=== PATIENT | male | born 1955 | race Caucasian/White ===

== ENCOUNTER → 2019-11-15 | Outpatient (CLI) | payer OTHER, BC ==
[~2019-11-15] MED LIST: ABILIFY 5 MG TAB5 MG PO; ASPIRIN EC81 M1 PO; ATIVAN1 M1 PO; BASAGLAR K100 UNIT/1 SUBQ; BRILINTA90 MG PO; CIPROHEPTADINE PO; GLUCOPHAGE1000 MG PO; IMDUR 30 MG TAB30 M1 PO; KEPPRA XR500 MG PO; LIPITOR80 MG PO; LOPRESSOR50 PO; MINIPRESS5 MG PO; NEURONTIN100 MG PO; NEXIUM 40 MG CA40 M1 PO; THEO-24300 MG PO; VENLAFAXINE HC150 M1 PO; ZESTRIL10 MG PO
== END ==
LOC: LAB 11:30
DX: Z01.812 Encounter for preprocedural laboratory examination (principal); Z20.828 Contact with and (suspected) exposure to other viral communicable diseases

== ENCOUNTER 2019-11-19 06:03 | Inpatient (IN) | payer OTHER, BC ==
[2019-11-15 10:58] LABS: ABSOLUTE NEUTROPHILS 6.3 thou/uL (1.4-8.2); BASOPHILS 0.6 % (0.0-2.0); EOSINOPHILS 3.4 % (0.0-3.0); HEMATOCRIT 43.7 % (42.0-52.0); LYMPHOCYTES 18.5 % (24.0-44.0); MCH 31.1 pg (26.0-34.0); MCHC 34.3 g/dL (28.0-37.0); MCV 90.8 fL (80.0-100.0); MONOCYTES 6.2 % (1.0-8.0); PLATELET COUNT 194 thou/uL (150-400); POLYS 71.3 % (36.0-66.0); RBC 4.81 mil/uL (4.50-6.00); RDW 12.9 % (10.5-14.5); URINE BILIRUBIN NEGATIVE (Negative); URINE BLOOD NEGATIVE (Negative); URINE CLARITY CLEAR; URINE COLOR YELLOW; URINE GLUCOSE-RANDOM* NEGATIVE (Negative); URINE KETONES NEGATIVE (Negative); URINE LEUKOCYTES-REFLEX NEGATIVE (Negative); URINE NITRITE-REFLEX NEGATIVE (Negative); URINE PROTEIN (DIPSTICK) NEGATIVE (Negative); URINE SPECIFIC GRAVITY >= 1.030 (1.005-1.035); URINE UROBILINOGEN 0.2 E.U./dl (0.2-1.0); WBC 8.8 thou/uL (4.0-11.0)
[2019-11-15 11:20] LABS: ALBUMIN 3.9 g/dL (3.4-5.0); CALCIUM 9.1 mg/dL (8.5-10.1); MAGNESIUM 1.8 mg/dL (1.8-2.4); POTASSIUM 3.9 mmol/L (3.5-5.1); TOTAL BILIRUBIN 0.5 mg/dL (0.2-1.0); TOTAL PROTEIN 7.2 g/dL (6.4-8.2)
[2019-11-15 11:21] LABS: APTT 29.5 Seconds (24.5-32.8); PROTIME 10.4 Seconds (9.3-11.4)
--- NOTE | 2019-11-15 16:45 | EKG ---
[facility] [place] [address] ELECTROCARDIOGRAM REPORT Name: NYDIA CALLAHAN Room #: PRE IN M.R.#: [id number] Admission: Attend Phys: Fuad Rome MD Discharge: Date of : 55 Report #: [id number] THIS REPORT FOR: cc: FAM - Family physician unknown FAM - Family physician unknown Soto Pacheco MD [facility] ~ THIS REPORT FOR: //name// [facility] Test Date: 2019-11-15 Test Time: 10:56:41 Pat Name: NYDIA CALLAHAN Department: Room: Gender: M Alarm Signaler: MEI : 1955 Requested By: Fuad Rome Order Number: [id number] MD: Soto Pacheco Measurements Intervals [place] Rate: 69 P: 54 LA: 161 QRS: 46 QRSD: 94 T: 63 QT: 396 QTc: 425 Interpretive Statements Sinus rhythm Abnormal R-wave progression, early transition No previous ECG available for comparison Electronically Signed On 11-15-2019 16:45:40 CDT by Soto Pacheco [email or web address] <ELECTRONICALLY SIGNED> By: Soto Pacheco MD, [facility] 11/15/19 1645 D: 08/1055 105 Soto Pacheco MD, FACC /EPI
[~2019-11-19] VITALS: Ht 175.3 cm; Wt 120.2 kg
[~2019-11-19 06:03] MED LIST changes: -CIPROHEPTADINE PO; +CYPROHEPTADINE 44 MG PO; -KEPPRA XR500 MG PO; +LEVETIRACETAM500 M1 PO
[2019-11-19 07:27] VITALS: BP 111/60
[2019-11-19 12:40] VITALS: BP 103/62
--- NOTE | 2019-11-19 13:08 | NUR ---
PATIENT ARRIVED ON UNIT WITH AT BEDSIDE. ALERT XS 4 PLEASANT AND COOPERATIVE WITH CARE. V.S. 97.6 18 68 103/62 O2 SAT = 95% 2L/ NC, WEIGHT = 266.4 5'7". DIET ADVANCED TO CARB DM DIET. ARRIVED AT 1240
[2019-11-19 19:45] VITALS: BP 125/72
--- NOTE | 2019-11-20 03:07 | NUR ---
PT IS ALERT AND ORIENTED. VERY COOPERATIVE. HE HAS BEEN SATNDING BY THE BEDSIDE TO USE URINAL. HE HAS NOT REQUIRED ANY PAIN MEDS. DENIES ANY DIZZINESS OR SOA. THE INCISION TO HIS LOWER BACK HAS SOME BLOODY DRAINAGE-WILL CONTINUE TO MONITOR FOR NEED TO CHANGE IT.PT IS VOIDING OKAY. DRINKING ADEQUATELY. C/O SOME MILD/PARTIAL NUMBNESS TO R HAND POST OP.PT APPEARS TO BE IN NO DISTRESS. PROGRESSING TOWARDS CARE GOALS.
[2019-11-20 04:00] VITALS: BP 135/78
[2019-11-20 05:37] LABS: BASOPHILS 0.1 % (0.0-2.0); HEMATOCRIT 39.6 % (42.0-52.0); HEMOGLOBIN 13.4 gm/dL (14.0-18.0); LYMPHOCYTES 7.2 % (24.0-44.0); MCH 30.6 pg (26.0-34.0); MCHC 33.8 g/dL (28.0-37.0); MCV 90.6 fL (80.0-100.0); MONOCYTES 8.5 % (1.0-8.0); PLATELET COUNT 188 thou/uL (150-400); POLYS 84.2 % (36.0-66.0); RBC 4.37 mil/uL (4.50-6.00); RDW 13.2 % (10.5-14.5); WBC 14.3 thou/uL (4.0-11.0)
[2019-11-20 05:42] LABS: CALCIUM 8.2 mg/dL (8.5-10.1); CREATININE 0.9 mg/dL (0.7-1.3); MAGNESIUM 1.8 mg/dL (1.8-2.4)
--- NOTE | 2019-11-20 07:49 | O ---
[facility] [place] [address] OPERATIVE REPORT Name: NYDIA CALLAHAN Room #: 441-P ADM IN M.R.#: [id number] Admission: 11/19/19 Attend Phys: Fuad Rome MD Discharge: Date of : 55 Report #: [id number] THIS REPORT FOR: cc: ALEKSANDRA - Family physician unknown ALEKSANDRA - Family physician unknown Fuad Rome MD ~ CC: ALEKSANDRA unknown Fuad Rome DATE OF SERVICE: 11/19/2019 PREOPERATIVE DIAGNOSES: Degenerative disk disease, spinal stenosis, foraminal stenosis, L4-L5 and L5-S1 and left L5-S1 HNP. Low back pain, spondylolisthesis, instability, L4-L5. POSTOPERATIVE DIAGNOSES: Degenerative disk disease, spinal stenosis, foraminal stenosis, L4-L5 and L5-S1, and left L5-S1 HNP. Low back pain, spondylolisthesis, instability, L4-L5. PROCEDURES: Posterior instrumentation, L4-L5, (TLIF) transforaminal lumbar interbody fusion, L4-L5, insertion of interbody cage prosthesis L4-L5, bilateral laminectomy, partial facetectomy and neural foraminotomy for stenosis far in excess of that needed for cage insertion L4, bilateral laminectomy with partial facetectomy with neural foraminotomy for stenosis far in excess of that needed for cage insertion L5. Bilateral laminectomy with partial facetectomy and neural foraminotomy for stenosis far in excess of decompression necessary for cage insertion, S1. Autologous bone graft, allograft, synthetic bone graft and serial fluoroscopic visualizations. SURGEON: Elpidio Rome MD. CONSULTING SALES EXECUTIVE SURGEON: CADEN Ace. ANESTHESIA: General via endotracheal tube. INDICATIONS: The patient had intractable back and bilateral leg pain, left much greater than right and L5 and S1 nerve root distribution. The patient has proved refractory to all forms of multimodality conservative managements requesting we proceed with operative intervention. The patient understands the risks of surgery to be , DVT, pulmonary embolism, paraplegia, loss of bowel and bladder function, loss of sexual function, the possibility of bleeding, bleeding requiring transfusion, transfusion attendant risks of AIDS and hepatitis infection, instability, the need for revision, prolonged hospital stay, dural leak, spinal headache, infection and he requests we proceed. [address] [address] OPERATIVE REPORT Name: NYDIA CALLAHAN Room #: 441-P [facility] IN M.R.#: [id number] Admission: 11/19/19 Attend Phys: Fuad Rome MD Discharge: Date of : 55 Report #: [id number] DESCRIPTION OF PROCEDURE: The patient was brought to the operating room and administered general anesthesia via endotracheal tube. Lower extremities were treated with NEYMAR hose and intermittent compression stockings. The patient's low back was defatted with alcohol and visualized under fluoroscopy for the first of serial multiple fluoroscopic evaluations requiring surgeon exposure and interpretation. The patient also received perioperative antibiotic in the form of clindamycin. The patient was then positioned on the Van table in the prone position with all bony prominences were padded appropriately. A Lau catheter had been placed. All bony prominences were padded appropriately and care was taken to ensure the shoulders not abducted more than 90 degrees, the elbows flexed more than 90 degrees and there was no undue pressure on the cubital or carpal canals. The area of the anterior superior iliac spine was well padded to protect the lateral femoral cutaneous nerve. Hips and knees were well padded and there was no pressure on the dorsum of the feet. The patient's low back was defatted with alcohol visualized under fluoroscopy and the pedicles of L4, L5 and S1 were marked on the patient's back for surgical reference. We then sterilely prepped and draped, infiltrated the skin with 0.5% Marcaine, 1:200,000 epinephrine and sharp dissection was continued down through the skin and the subcutaneous tissues to the level of the deep fascia to the tips of the spinous processes and a subperiosteal dissection was then accomplished from L4 to the sacrum. The patient's transverse processes were exposed at L4 and L5. We then affixed clamps to the tips of the spinous processes perpendicular to the floor and fluoroscopy was again obtained in the lateral view and it documented our levels at L4 and L5 and gave us our pedicle directions by the relative position and trajectory to the perpendicular clamps. With our levels and pedicle directions known we then used a high speed drill to decorticate at the base of the transverse process in line with the lateral facet. At L4, we inserted a pedicle probe and inserted it to a depth of 40 mm. We withdrew it palpated the hole with a ball tip probe to bone wax the hole for hemostatic tamponade and placed a metallic marker. We also switched to a Lukens trap and put our nanOss in the Lukens trap and used the patient's vertebral body blood rich in stem cells to saturate the nanOss. We then moved to the L5 level and performed exactly the same procedure decorticated the base of the transverse process in line with the lateral facet and then inserted a pedicle probe to ensure no cortical violation, bone wax for hemostatic tamponade and metallic marker. We then reproduced this on the patient's left side. With the markers all in place bilaterally, we brought in the fluoroscopy for an additional fluoroscopic AP and lateral, which gave us our marker positions within the pedicles, their trajectory, their position within the pedicles was superb. We then subsequently withdrew the fluoroscopy from the field, withdrew each marker, tapped the hole, palpated the hole to ensure again cortical integrity, but before insertion of the screw, we decorticated posterolaterally and inserted the nanOss that had been saturated in the patient's vertebral body blood rich in stem cells. Synthetic bone placed on the transverse processes and lateral facet at L4 and L5. We then inserted the screws measured, cut and contoured rods and [facility] [address] [place] [address] OPERATIVE REPORT Name: NYDIA CALLAHAN Room #: 441-P ADM IN M.R.#: [id number] Admission: 11/19/19 Attend Phys: Fuad Rome MD Discharge: Date of : 55 Report #: [id number] locked the bottom screw, left the top steep tender loose. We then moved to the opposite side and performed exactly the same procedure. Removed the markers, decorticated, tapped the hole, palpated to ensure cortical integrity, inserted the screw and the bone graft. We then moved to the subadjacent level and performed exactly the same procedure and then placed the sepideh and locked it, locked the bottom screw, left the upper cap loose. We then checked in AP and lateral fluoroscopy view and it showed our instrumentation to be in superb position and we had achieved a complete 100% reduction of the spondylolisthesis at the L4-L5 level. With the spondylolisthesis reduced and held, we then began the decompression. We removed the spinous processes of L4 and L5. We began by thinning the lamina of L4 and L5 to the anterior cortex. Then, we used micro curettes to separate the ligamentum flavum from the undersurface of the lamina resecting the lamina and then once we were to the level of the L4 pedicles, we turned our dissection distally and removed the intervening ligamentum flavum and the lamina of L5. We then also performed a laminectomy of S1, so that we could get a wide decompressive laminectomies of the L4-L5 and L5-S1 levels. We then started cephalad on the right much or way down the lateral recess performing partial facetectomies and then finally neural foraminotomies of the L4, L5 and S1 levels. When the decompressions and laminectomies were completed at these three levels, we turned our attention to the left side where we performed a complete left laminectomy at L4 and decompressed the L4, L5 and S1 nerve roots again performing partial facetectomies and neural foraminotomies. We then exposed the L4 and L5 nerve roots and the lateral border of the spinal sac. We exposed the L4-L5 disk and performed a total diskectomy at the L4-L5 level with a total diskectomy, complete, we then used the maida to shave to a size 12 interbody. With 12 interbody seemingly the appropriate size, we put in the trial brought in the fluoroscopy and checked in AP and lateral fluoroscopy view and it showed excellent position of our interbody prosthesis. A trial with appropriate size and interference fit. We then withdrew the trial and filled an interbody cage with the patient's own bone from the laminectomy, decompression and with a cage full, we tamped the bone filled the cage to a safe interbody position well recessed. It appeared excellent with respect to interference fit and height and it was good with respect to position in AP plane positioning also. We then compressed the L4-L5 level by compressing the upper loose screw and then locking the cap with both sides compressed, we then checked the neural foramen and there was no evidence of neural foraminal stenosis. Now compressed, we fit a transverse connector and set it aside. We decorticated the L4-L5 facet on the right and packed it with bone after 1 liter of antibiotic irrigation of the wound. We then tamped the bone graft into the right L4-L5 facet affecting a posterior facet fusion. With the facet packed, we then turned our attention to the setting the transverse connector, placing pledgets thrombin-soaked Gelfoam over the spinal canal and obtaining meticulous hemostasis. With meticulous hemostasis obtained, we closed the deep fascial layer with 0 Ethibond in [id number] interrupted fashion, deep subQ with 0 Vicryl, superficial subcutaneous 2-0 Vicryl, skin with subcuticular 3-0 dressed with benzoin, Steri-Strips, Xeroform, sterile dressing, sponges and a bioclusive. Final blood [facility] [address] [place] [address] OPERATIVE REPORT Name: NYDIA CALLAHAN Room #: 441-P [facility] IN M.R.#: [id number] Admission: 11/19/19 Attend Phys: Fuad Rome MD Discharge: Date of : 55 Report #: [id number] loss was 150 mL. There were no specimens, no complications. The patient was being transported to the recovery room for closer neurovascular observation, continue prophylactic antibiotic and serial neurovascular exams until stable for discharge to the floor. The patient tolerated the procedure well physiologically stable throughout. Final x-rays looked superb with respect to placement of all instrumentation including screws and interbody prosthesis in the AP and lateral plane. Final fluoroscopy time was less than 20 minutes. <ELECTRONICALLY SIGNED> By: Fuad Rome MD 11/20/19 0749 [id number] Fuad Rome MD /tasha
[2019-11-20 08:00] VITALS: BP 109/68
[2019-11-20 09:55] VITALS: BP 109/68
--- NOTE | 2019-11-20 14:44 | NUR ---
ASSESSMENT: CM REVIEWED CHART AND SPOKE WITH PATIENT. PT IS ALERT AND ORIENTED X4. PT IS HERE DUE TO LAMINECTOMY. PT REPORTS THAT HE LIVES IN A HOUSE WITH HIS . PT REPORTS HAVING ABOUT 3 STEPS WITH NO HANDRAIL TO ENTER THE HOME. PT REPORTS NO STEPS HE HAS TO USE ONCE INSIDE. PT REPORTS HAVING A WALKER AT HOME WELL A CPAP. PT REPORTS HE HAS NOT HAD HH IN THE PAST. PT REPORTS HE IS CONSIDERING GOING TO [facility] FOR OUTPATIENT REHAB SINCE IT IS NEAR HIS HOME. PT IS WORKING WITH THERAPIES. CM WILL CONTINUE TO FOLLOW TO ASSIST NEEDED.
[2019-11-20 16:16] VITALS: BP 128/76
[2019-11-20 19:09] VITALS: BP 145/85
--- NOTE | 2019-11-20 19:12 | NUR ---
PT IS AOX4, VSS, PAIN CONTROLLED WITH ORAL ANALGESIC. PT IS UP WITH WALKER AND STANDBY ASSIST X1 TO BATHROOM. PT CALLS APPROPRIATELY, FALL PRECAUTIONS IN PLACE. WILL CONTINUE TO MONITOR.
--- NOTE | 2019-11-21 03:12 | NUR ---
ASSESSMENT COMPLETED. PT IS WALKING WELL TO THE BATHROOM USING ROLLER WALKER. HE CALLS APPROPRIATELY. SO FAR DENIES ANY DISCOMFORT THAT REQUIRES PAIN MEDICINE. HE IS VOIDING OKAY. USING CPAP-NO DISTRESS NOTED.DRSG TO BACK WAS CHANGED. NO NEW DRAINAGE NOTED. INCISION IS WELL APPROXIMATED WITH NO SIGNS OFINFECTION.PROGRESSING TOWARDS CARE GOALS.
[2019-11-21 03:36] VITALS: BP 107/70
[2019-11-21 05:31] LABS: ABSOLUTE NEUTROPHILS 8.6 thou/uL (1.4-8.2); BASOPHILS 0.3 % (0.0-2.0); EOSINOPHILS 1.8 % (0.0-3.0); HEMATOCRIT 39.8 % (42.0-52.0); HEMOGLOBIN 13.4 gm/dL (14.0-18.0); LYMPHOCYTES 15.5 % (24.0-44.0); MCH 30.4 pg (26.0-34.0); MCHC 33.6 g/dL (28.0-37.0); MCV 90.6 fL (80.0-100.0); MONOCYTES 11.3 % (1.0-8.0); PLATELET COUNT 173 thou/uL (150-400); POLYS 71.1 % (36.0-66.0); RBC 4.39 mil/uL (4.50-6.00); WBC 12.1 thou/uL (4.0-11.0)
[2019-11-21 05:38] LABS: CALCIUM 8.3 mg/dL (8.5-10.1); CREATININE 0.8 mg/dL (0.7-1.3); POTASSIUM 3.9 mmol/L (3.5-5.1)
[2019-11-21 08:21] VITALS: BP 124/74
--- NOTE | 2019-11-21 15:15 | NUR ---
on-going assessment: cm reviewed chart. pt has orders to discharge home no needs. pt has equiptment at home. case closed.
[2019-11-21 15:17] VITALS: BP 124/74
[2019-11-21 16:27] VITALS: BP 118/69
--- NOTE | 2019-11-21 18:11 | NUR ---
PT IS AOX4, VSS, PAIN CONTROLLED WITH ORAL PAIN ANALGESIC. PT RECEIVED DC INSTRUCTIONS TO GO HOME. PT VERBALIZED UNDERSTANDING, DRESSING ON BACK CDI. TOOK PT HOME PER CAR.
== END 2019-11-21 18:11 | disposition home or self-care (01) | DRG 460 ==
LOC: 4S 06:03 → TBA 06:03 → PRE 09:28 → 4S 12:53
PROVIDERS: Nurse Practitioner; Physician Assistant
PROC: 0SB20ZZ Excision of Lumbar Vertebral Disc, Open Approach (ICD-10-PCS; principal; 2019-11-19)
PROC: 00NY0ZZ Release Lumbar Spinal Cord, Open Approach (ICD-10-PCS; principal; 2019-11-19)
PROC: 0SG30AJ Fusion of Lumbosacral Joint with Interbody Fusion Device, Posterior Approach, Anterior Column, Open Approach (ICD-10-PCS; principal; 2019-11-19)
DX: M48.07 Spinal stenosis, lumbosacral region (principal); M51.17 Intervertebral disc disorders with radiculopathy, lumbosacral region; M47.897 Other spondylosis, lumbosacral region; M19.90 Unspecified osteoarthritis, unspecified site; M43.17 Spondylolisthesis, lumbosacral region; F32.9 Major depressive disorder, single episode, unspecified; F41.9 Anxiety disorder, unspecified; E11.9 Type 2 diabetes mellitus without complications; I10 Essential (primary) hypertension; E78.5 Hyperlipidemia, unspecified; G89.29 Other chronic pain; M54.9 Dorsalgia, unspecified; K21.9 Gastro-esophageal reflux disease without esophagitis; I25.10 Atherosclerotic heart disease of native coronary artery without angina pectoris; F43.10 Post-traumatic stress disorder, unspecified; E66.9 Obesity, unspecified; Z68.39 Body mass index [BMI] 39.0-39.9, adult; Z87.442 Personal history of urinary calculi; Z88.0 Allergy status to penicillin; Z95.5 Presence of coronary angioplasty implant and graft; Z87.891 Personal history of nicotine dependence; Z79.899 Other long term (current) drug therapy
CPT/HCPCS: 10102; 50010; 50101; 50402; 50455; 50850; 51878; 56524; 56528; 56529; 62110; 62900; 65131; 70005

== ENCOUNTER → 2019-12-02 | Outpatient (CLI) | payer OTHER, BC | LOC: RAD 10:12 | DX: M43.26 Fusion of spine, lumbar region (principal) ==

== ENCOUNTER → 2020-01-01 | Outpatient (CLI) | payer OTHER, BC | LOC: RAD 10:18 | DX: M43.26 Fusion of spine, lumbar region (principal); M96.1 Postlaminectomy syndrome, not elsewhere classified; Z98.890 Other specified postprocedural states ==

== ENCOUNTER → 2020-02-10 | Outpatient (CLI) | payer OTHER | LOC: RAD 10:29 | DX: Z98.890 Other specified postprocedural states (principal); Z98.1 Arthrodesis status ==